=== PATIENT | male | born 1985 | race Caucasian/White ===

== ENCOUNTER → 2019-01-12 | Emergency (ER) | payer BC ==
[~2019-01-12] VITALS: Ht 182.9 cm; Wt 90.7 kg
[~2019-01-12] MED LIST: ALBUTEROL INHAL17 GM IH; ALBUTEROL2.5 MG/0.1 IH; AMOXICILLIN 50500 M1 PO; AMOXICILLIN 50500 MG PO; AMOXIL 875 MG875 M1 PO; AUGMENTIN 875875 M1 PO; AUGMENTIN 875875 MG PO; AZITHROMYCIN 2250 MG PO; BACTRIM DS TAB1 EACH PO; CEPHALEXIN; CEPHALEXIN 500500 M3 PO; CLEOCIN HCL150 MG PO; CLOBEX59 M1 TP; DARVOCET-N 1001 EACH PO; DOXYCYCLINE 10100 MG PO; ERYTHROMYCIN E3.5 G3 OPHTHALMIC; FLONASE16 GM NS; HYDROCODON-ACE1 EAC7 PO; HYDROCODONE-AP1 EAC6 PO; IBUPROFEN 800800 M1 PO; IMITREX100 MG PO; KEFLEX500 MG PO; LIDOCAINE VISC100 M1 SWISH&SPIT; LINEZOLID600 MG PO; LORATIDINE 10 M10 M1 PO; MUCINEX D TABL1 EAC1 PO; MUCINEX TA600 MG/TA2; NAPROSYN500 MG PO; NICOTINE TRANSD21 M1; NOHOMEMEDICATIONS; NORCO 5-325 TA1 EACH PO; PENICILLIN V P500 MG PO; PENICILLIN VK500 M1 PO; PENICILLIN VK500 MG PO; PERCOCET 5-3251 EACH PO; PERCOCET 7.5-51 EACH PO; PERIDEX 0.12%473 M1 SSP; PHENERGAN25 MG RE; PREDNISONE50 MG PO; PROAIR HFA8.5 GM IH; TOPAMAX50 MG PO; TRAMADOL 50 MG50 MG PO; TYLENOL325 MG PO; ULTRAM 50MG TAB50 MG PO; VECTICAL100 GM TP
[2019-01-12 17:01] VITALS: BP 156/100
== END ==
LOC: M.ERS 16:37
DX: K04.7 Periapical abscess without sinus (principal); K02.9 Dental caries, unspecified; F17.210 Nicotine dependence, cigarettes, uncomplicated; Z88.5 Allergy status to narcotic agent